=== PATIENT | male | born 1935 | race Caucasian/White ===

== ENCOUNTER 2022-01-06 23:09 | Emergency (ER) | payer MEDICARE ==
[~2022-01-06] VITALS: Ht 180.3 cm; Wt 80.0 kg
[2022-01-07 03:49] LABS: HEMATOCRIT 36.4 % (42.0-52.0); HEMOGLOBIN 12.3 g/dL (14.0-18.0); MEAN CORPUSCULAR HEMOGLOBIN 32.7 pg (28.0-32.0); MEAN CORPUSCULAR VOLUME 96.3 fL (80.0-94.0); PLATELET 152 x1000/uL (130-400); RED BLOOD CELL COUNT 3.78 mill/uL (4.7-6.1); RED CELL DISTRIBUTION WIDTH 13.7 % (11.6-14.6)
[2022-01-07 03:57] LABS: CHLORIDE 107 mEq/L (98-107)
[2022-01-07 04:01] LABS: PROTHROMBIN TIME 10.6 sec (9.6-11.0)
[2022-01-07 12:58] VITALS: BP 119/53
== END 2022-01-07 00:31 | disposition home or self-care (01) ==
LOC: EDBD 23:28 → ER 23:28
DX: S30.813A Abrasion of scrotum and testes, initial encounter (principal); X58.XXXA Exposure to other specified factors, initial encounter; Y93.89 Activity, other specified; Y92.89 Other specified places as the place of occurrence of the external cause; Y99.8 Other external cause status
CPT/HCPCS: 36415; 76870; 80053; 85025; 93976; 99284

== ENCOUNTER 2022-01-27 17:13 | Emergency (ER) | payer MEDICARE ==
[~2022-01-27] VITALS: Ht 182.9 cm; Wt 68.0 kg
[2022-01-27 17:40] VITALS: BP 75/25
[2022-01-27] MEDS ORDERED: NOREPINEPHRINE 8MG/250ML PMX 250 ML IV ONE ×2 (17:45→17:46)
[2022-01-27] MEDS ORDERED: SODIUM BICARBONATE 8.4% 1 MEQ/ML 50ML SYR IV ONE (17:58)
[2022-01-27] MEDS ORDERED: SODIUM CHLORIDE 0.9% 1000ML BAG (SEPSIS BOLUS) IV ONE (18:00)
[2022-01-27] MEDS ORDERED: PIPERACILLIN/TAZ 3.375G PREMIX 50 ML IV ONE (18:00)
[2022-01-27] MEDS ORDERED: VANCOMYCIN 1G PREMIX 200 ML IV ONE (18:00)
== END 2022-01-27 21:53 ==
LOC: ER 17:13 → CANBEDREQ 01-28 00:46
DX: J96.90 Respiratory failure, unspecified, unspecified whether with hypoxia or hypercapnia (principal); I46.9 Cardiac arrest, cause unspecified; F03.90 Unspecified dementia, unspecified severity, without behavioral disturbance, psychotic disturbance, mood disturbance, and anxiety; I10 Essential (primary) hypertension
CPT/HCPCS: 31500; 82962; 87040; 92950; 99285; J3490; J7030; 94002